=== PATIENT | female | born 1990 | race African-American/Black ===

== ENCOUNTER 2020-02-28 12:49 | Emergency (ER) | payer OTHER ==
[2020-02-28 13:20] VITALS: PULSE 80; TEMP 98.2
--- NOTE | 2020-02-28 14:20 | ED ---
General Adult HPI - General Chief complaint: Urogenital Stated complaint: Abd pain, female gu, Time Seen by Provider: 02/28/20 13:44 Source: patient, RN notes reviewed Mode of arrival: ambulatory Limitations: no limitations - History of Present Illness Initial comments: 29-year-old female presents to the emergency department for vaginal b leeding. Patient reports that 6 days ago she began having light spotting and right lower quadrant abdominal pain. Patient states that today she took a test and it was positive. Patient reports her last period started on January 17 for approximately 6 weeks ago. Patient denies any heavy vaginal bleeding. She states pain is actually improving and is not severe. despite triage note patient denies any new vaginal discharge. Patient has no other complaints at this time including shortness of breath, chest pain, nausea or vomiting, headache, or visual changes. - Related Data Previous Rx's Medication Instructions Recorded Pnv No.95/Ferrous Fum/Folic AC 1 each PO DAILY #30 tablet 02/28/20 [ Multivitamin Tablet] Allergies Allergy/AdvReac Type Severity Reaction Status Date / Time No Known Allergies Allergy Verified 02/28/20 14:19 Review of Systems ROS Statement: Those systems with pertinent positive or pertinent negative responses have been documented in the HPI. ROS Other: All systems not noted in ROS Statement are negative. Past Medical History Past Medical History: No Reported History History of Any Multi-Drug Resistant Organisms: None Reported Past Surgical History: No Surgical Hx Reported Past Psychological History: No Psychological Hx Reported Smoking Status: Never smoker Past Alcohol Use History: None Reported Past Drug Use History: None Reported General Exam Limitations: no limitations General appearance: alert, in no apparent distress Head exam: Present: atraumatic, normocephalic, normal inspection Eye exam: Present: normal appearance, PERRL, EOMI. Absent: scleral icterus, conjunctival injection, periorbital swelling ENT exam: Present: normal exam, mucous membranes moist Neck exam: Present: normal inspection, full ROM. Absent: tenderness, meningismus, lymphadenopathy Respiratory exam: Present: normal lung sounds bilaterally. Absent: respiratory distress, wheezes, rales, rhonchi, stridor Cardiovascular Exam: Present: regular rate, normal rhythm, normal heart sounds. Absent: systolic murmur, diastolic murmur, rubs, gallop, clicks GI/Abdominal exam: Present: soft, normal bowel sounds. Absent: distended, tenderness, guarding, rebound, rigid External exam: Present: normal external exam. Absent: erythema, swelling, lesions, lacerations, ecchymosis Speculum exam: Present: normal speculum exam. Absent: erythema, vaginal discharge, cervical discharge, vaginal bleeding (No active bleeding at this ti me), foreign body, tissue, laceration By manual exam: Present: normal by manual exam. Absent: cervical motion tenderness, adnexal tenderness, adnexal mass, uterine enlargement, uterine tenderness Neurological exam: Present: alert Course Vital Signs 02/28/20 13:17 Temperature 98.2 F Pulse Rate 80 Respiratory 16 Rate Blood Pressure 126/67 O2 Sat by Pulse 98 Oximetry Medical Decision Making - Medical Decision Making Vitals are stable. The patient presents for positive test with minimal right lower quadrant pain and spotting. Pelvic exam is unremarkable, no tenderness. No tenderness on abdominal exam. CBC CMP is unremarkable. Patient does have an hCG Quant of 12,000. O-, patient was given RhoGAM given bleeding. Obstetrics ultrasound fevers A to early to visualize intrauterine gestation however spontaneous and ectopic or in the differential. There is a 3 mm yolk sac and a possible ovoid lesion that could reflect early gestational sac. However given possibility of ectopic I did discuss this case with Dr. Valladares's MA who relayed all this information to her including my concern for possible ectopic . They want to see her in the office on Tuesday. They want to repeat an hCG at the office or they did offer to write a prescription to repeat this in 2 days ho wever they report they can do it at the office on Tuesday. I did update the patient on this and she will be sure to follow up. If she has any worsening symptoms she will return here to the emergency room. I did discuss reasons to return including passing out, severe abdominal pain, worsening bleeding, or any other concerning symptoms. - Lab Data Result diagrams: 02/28/20 14:08 02/28/20 14:08 Lab Results 02/28/20 02/28/20 02/28/20 Range/Units 14:08 14:08 14:08 WBC 7.0 (3.8-10.6) k/uL RBC 4.40 (3.80-5.40) m/uL Hgb 13.5 (11.4-16.0) gm/dL Hct 39.1 (34.0-46.0) % MCV 88.8 (80.0-100.0) fL MCH 30.7 (25.0-35.0) pg MCHC 34.5 (31.0-37.0) g/dL RDW 12.2 (11.5-15.5) % Plt Count 271 (150-450) k/uL MPV 7.8 Neutrophils % 77 % Lymphocytes % 16 % Monocytes % 4 % Eosinophils % 1 % Basophils % 1 % Neutrophils # 5.3 (1.3-7.7) k/uL Lymphocytes # 1.1 (1.0-4.8) k/uL Monocytes # 0.3 (0-1.0) k/uL Eosinophils # 0.1 (0-0.7) k/uL Basophils # 0.0 (0-0.2) k/uL Sodium 136 L (137-145) mmol/L Potassium 3.4 L (3.5-5.1) mmol/L Chloride 108 H (98-107) mmol/L Carbon Dioxide 21 L (22-30) mmol/L Anion Gap 7 mmol/L BUN 7 (7-17) mg/dL Creatinine 0.57 (0.52-1.04) mg/dL Est GFR (CKD-EPI)AfAm >90 (>60 ml/min/1.73 sqM) Est GFR (CKD-EPI)NonAf >90 (>60 ml/min/1.73 sqM) Glucose 89 (74-99) mg/dL Calcium 9.6 (8.4-10.2) mg/dL Total Bilirubin 0.6 (0.2-1.3) mg/dL AST 21 (14-36) U/L ALT 18 (4-34) U/L Alkaline Phosphatase 57 (38-126) U/L Total Protein 7.4 (6.3-8.2) g/dL Albumin 4.2 (3.5-5.0) g/dL HCG, Quant 36916.8 mIU/mL Urine Color Yellow Urine Appearance Clear (Clear) Urine pH 6.0 (5.0-8.0) Ur Specific [place] 1.024 (1.001-1.035) Urine Protein Trace H (Negative) Urine Glucose (UA) Negative (Negative) Urine Ketones 4+ H (Negative) Urine Blood Negative (Negative) Urine Nitrite Negative (Negative) Urine Bilirubin Negative (Negative) Urine Urobilinogen <2.0 (<2.0) mg/dL Ur Leukocyte Esterase Moderate H (Negative) Urine RBC 2 (0-5) /hpf Urine WBC 4 (0-5) /hpf Ur Squamous Epith Cells 3 (0-4) /hpf Urine Mucus Many H (None) /hpf Trichomonas Ag (Rapid) (Negative) Blood Type Blood Type Recheck Bld Type Recheck Status 02/28/20 02/28/20 Range/Units 14:08 15:45 WBC (3.8-10.6) k/uL RBC (3.80-5.40) m/uL Hgb (11.4-16.0) gm/dL Hct (34.0-46.0) % MCV (80.0-100.0) fL MCH (25.0-35.0) pg MCHC (31.0-37.0) g/dL RDW (11.5-15.5) % Plt Count (150-450) k/uL MPV Neutrophils % % Lymphocytes % % Monocytes % % Eosinophils % % Basophils % % Neutrophils # (1.3-7.7) k/uL Lymphocytes # (1.0-4.8) k/uL Monocytes # (0-1.0) k/uL Eosinophils # (0-0.7) k/uL Basophils # (0-0.2) k/uL Sodium (137-145) mmol/L Potassium (3.5-5.1) mmol/L Chloride (98-107) mmol/L Carbon Dioxide (22-30) mmol/L Anion Gap mmol/L BUN (7-17) mg/dL Creatinine (0.52-1.04) mg/dL Est GFR (CKD-EPI)AfAm (>60 ml/min/1.73 sqM) Est GFR (CKD-EPI)NonAf (>60 ml/min/1.73 sqM) Glucose (74-99) mg/dL Calcium (8.4-10.2) mg/dL Total Bilirubin (0.2-1.3) mg/dL AST (14-36) U/L ALT (4-34) U/L Alkaline Phosphatase (38-126) U/L Total Protein (6.3-8.2) g/dL Albumin (3.5-5.0) g/dL HCG, Quant mIU/mL Urine Color Urine Appearance (Clear) Urine pH (5.0-8.0) Ur Specific [place] (1.001-1.035) Urine Protein (Negative) Urine Glucose (UA) (Negative) Urine Ketones (Negative) Urine Blood (Negative) Urine Nitrite (Negative) Urine Bilirubin (Negative) Urine Urobilinogen (<2.0) mg/dL Ur Leukocyte Esterase (Negative) Urine RBC (0-5) /hpf Urine WBC (0-5) /hpf Ur Squamous Epith Cells (0-4) /hpf Urine Mucus (None) /hpf Trichomonas Ag (Rapid) Negative (Negative) Blood Type O Negative Blood Type Recheck No Previous Record Bld Type Recheck Status CABO Indicated Disposition Clinical Impression: Vaginal bleeding, Elevated serum hCG Disposition: HOME SELF-CARE Condition: Good Instructions (If sedation given, give patient instructions): Threatened Miscarriage (ED) Additional Instructions: Please make sure to see your doctor on Tuesday where they will repeat an hcg. Call today or tomorrow to make this appointment. They are aware that they will be seeing you on Tuesday. If you have any worsening symptoms prior to that time such as you lose consciousness, have severe abdominal pain, have worsening bleeding, or any other concerning symptoms you need to come directly to the emergency room. Please practice pelvic rest and do not insert anything into the vagina until you're evaluated by your doctor. Please begin taking vitamins. I did prescribe these to your pharmacy. Prescriptions: Pnv No.95/Ferrous Fum/Folic AC [ Multivitamin Tablet] 1 each PO DAILY #30 tablet Is patient prescribed a controlled substance at d/c from ED?: No Referrals: Nonstaff,Physician [Primary Care Provider] - 1-2 days Time of Disposition: 16:34
[2020-02-28 14:24] LABS: Basophils % (A) 1 %; Eosinophils # (A) 0.1 k/uL (0-0.7); Eosinophils % (A) 1 %; HCT 39.1 % (34.0-46.0); HGB 13.5 gm/dL (11.4-16.0); Lymphocytes # (A) 1.1 k/uL (1.0-4.8); Lymphocytes % (A) 16 %; MCH 30.7 pg (25.0-35.0); MCHC 34.5 g/dL (31.0-37.0); MCV 88.8 fL (80.0-100.0); Mean Platelet Volume 7.8; Monocytes # (A) 0.3 k/uL (0-1.0); Monocytes % (A) 4 %; Neutrophils # (A) 5.3 k/uL (1.3-7.7); Neutrophils % (A) 77 %; Platelet Count 271 k/uL (150-450); RDW 12.2 % (11.5-15.5)
[2020-02-28 14:34] LABS: ALT 18 U/L (4-34); AST 21 U/L (14-36); African American GFR (CKD) >90 (>60 ml/min/1.73 sqM); Albumin 4.2 g/dL (3.5-5.0); Alkaline Phosphatase 57 U/L (38-126); Anion Gap 7 mmol/L; Blood Urea Nitrogen 7 mg/dL (7-17); Calcium 9.6 mg/dL (8.4-10.2); Carbon Dioxide 21 mmol/L (22-30); Chloride 108 mmol/L (98-107); Glucose 89 mg/dL (74-99); Non-African American GFR(CKD) >90 (>60 ml/min/1.73 sqM); Potassium 3.4 mmol/L (3.5-5.1); Sodium 136 mmol/L (137-145); Total Bilirubin 0.6 mg/dL (0.2-1.3); Total Protein 7.4 g/dL (6.3-8.2)
[2020-02-28 14:41] LABS: Appearance,Urine Clear (Clear); Bilirubin,Urine Negative (Negative); Blood,Urine Negative (Negative); Color,Urine Yellow; Glucose,Urine (UA) Negative (Negative); Ketones,Urine 4+ (Negative); Leukocyte Esterase,Urine Moderate (Negative); Mucus,Urine Many /hpf; Nitrite,Urine Negative (Negative); Protein,Urine Trace (Negative); RBC,Urine 2 /hpf (0-5); Specific Gravity,Urine 1.024 (1.001-1.035); Squamous Epithelial Cell,Urine 3 /hpf (0-4); Urobilinogen,Urine <2.0 mg/dL (<2.0); WBC,Urine 4 /hpf (0-5)
[2020-02-28 14:51] LABS: HCG,Quantitative Serum 12084.8 mIU/mL
[2020-02-28] MEDS ORDERED: SODIUM CHLORIDE 0.9% 1,000 ML IV STA (15:00)
--- NOTE | 2020-02-28 15:27 | US ---
EXAMINATION TYPE: Transabdominal DATE OF EXAM: 02/28/2020 2:59 PM COMPARISON: NONE CLINICAL HISTORY: pain. Spotting and pelvic cramping EXAM PERFORMED: Transvaginal (TV) and Transabdominal (TA) EXAM MEASUREMENTS: GESTATIONAL AGE / DATING Physician Established: Not established yet Dates by LMP: (5 weeks/6 days) EDC: 10/24/2020 Dates by First Scan: This is 1st scan Dates by Current Scan for: (5 weeks/2 days) EDC: 10/28/2020 MATERNAL ANATOMY Uterus: 9.8 x 6.2 x 6.3cm, retroverted Right Ovary: 3.8 x 2.4 x 2.5cm Left Ovary: 2.0 x 1.4 x 1.4cm Post CDS / Adnexa: small amount of free fluid in posterior cul de sac Presence of free fluid: yes Presence of corpus luteal cyst: right ovary: 1.9 x 1.5 x 1.5cm Presence of subchorionic bleed: no GESTATION / SURVEY No pole seen at this time MSD: 1.1cm (5 weeks/2 days) Yolk Sac (normal less than 6mm): 3.0mm Date of LMP: 01/18/2020 Beta HcG (if available): Not available at time of exam Heterogeneous retroverted uterus with endometrium thickened to roughly 10 mm. There are some internal nonsimple fluid. There is additional ovoid 1.5 x 0.6 x 1.4 cm lesion could reflect early gestational sac. Towards end of study 3 mm round hyperechoic structure suspicious for yolk sac noted. No p ole seen. Free fluid is seen in pelvis. Both ovaries are identified. Right ovary shows 1.9 cm peripheral hypervascular hypoechoic lesion cons istent with corpus luteal cyst. IMPRESSION: Findings favor too early to visualize intrauterine gestation but spontaneous is in different ial and ectopic is not entirely excluded. Serial beta hCG and ultrasound follow-up is advis ed.
[2020-02-28] MEDS ORDERED: Rhogam IMMUNE GLOBULIN 1,500 UNIT/1 ML IM ONE (15:32)
[2020-02-28 17:09] VITALS: BP 122/75; RESP 18
== END 2020-02-28 17:09 | disposition home or self-care (01) ==
LOC: EC 12:49
DX: O46.90 Antepartum hemorrhage, unspecified, unspecified trimester (principal); O26.899 Other specified pregnancy related conditions, unspecified trimester; R10.31 Right lower quadrant pain; Z3A.00 Weeks of gestation of pregnancy not specified
CPT/HCPCS: 36415; 86900; 86901; 80053; 85025; 86850; 81001; 84702; 87808; 87491; 87591; 87070; 76801; 76817; 99284; 96360; 96361; 96372; J2791